=== PATIENT | male | born 1955 | race Caucasian/White ===

== ENCOUNTER → 2020-06-22 10:27 | Outpatient (BNVA) | payer MEDICARE, SELFPAY | PROVIDERS: Visit Provider Nurse Practitioner Family | DX: E78.5 Hyperlipidemia, unspecified (principal); Z79.899 Other long term (current) drug therapy; I11.0 Hypertensive heart disease with heart failure; I50.9 Heart failure, unspecified | CPT/HCPCS: 80053; 80061; 85025 ==

== ENCOUNTER 2020-07-17 20:00 | Outpatient (CLI) | payer MEDICARE, SELFPAY | END 2020-07-17 20:01 | disposition home or self-care (01) | LOC: SLEEP 07-18 15:01 | PROVIDERS: Visit Provider Nurse Practitioner Family | DX: G47.30 Sleep apnea, unspecified (principal) | CPT/HCPCS: 95810 ==

== ENCOUNTER 2020-08-14 20:00 | Outpatient (CLI) | payer MEDICARE, SELFPAY | END 2020-08-14 20:01 | disposition home or self-care (01) | LOC: SLEEP 08-15 12:22 | PROVIDERS: Visit Provider Nurse Practitioner Family | DX: G47.33 Obstructive sleep apnea (adult) (pediatric) (principal); J44.9 Chronic obstructive pulmonary disease, unspecified | CPT/HCPCS: 95811 ==